=== PATIENT | male | born 1985 | race Hispanic/Latino ===

== ENCOUNTER 2016-09-10 18:07 | Emergency (ER) | payer BC ==
[2016-09-10 18:16] VITALS: BP 128/80; PULSE 74; RESP 18; TEMP 98.6; O2SAT 100
[2016-09-10] MEDS ORDERED: Lidocaine 1% Inj (20ml) ONE (18:20)
--- NOTE | 2016-09-10 18:29 | ED PDOC ---
HPI: General Adult Time Seen by Provider: 09/10/16 18:16 Chief Complaint (Nursing): Abnormal Skin Integrity Chief Complaint (Provider): Laceration on Right Elbow History Per: Patient History/Exam Limitations: no limitations Onset/Duration Of Symptoms: Hrs Current Symptoms Are (Timing): Still Present Additional Complaint(s): 18:10 Tristian Loza is a 31 year old male that presents to the ED with a laceration on his right elbow. Patient reports that he was laying on his bed at home and playing with his dog when he lost his balance and fell of the bed, at which point his right elbow hit a knob on his dresser and caused the laceration. He does not report any pain. Tetanus not UTD. Past Medical History Reviewed: Historical Data, Nursing Documentation, Vital Signs Vital Signs: Last Vital Signs Temp 98.6 F 09/10/16 18:13 Pulse 74 09/10/16 18:13 Resp 18 09/10/16 18:13 BP 128/80 09/10/16 18:13 Pulse Ox 100 09/10/16 18:32 - Family History Family History: States: Unknown Family Hx - Home Medications Home Medications: Ambulatory Orders Medication Instructions Recorded Ibuprofen [Motrin] 600 mg PO Q6 #20 tab 09/10/16 - Allergies Allergies/Adverse Reactions: Allergies Allergy/AdvReac Type Severity Reaction Status Date / Time No Known Allergies Allergy Verified 09/10/16 18:13 Review of Systems Musculoskeletal: Positive for: Other (laceration on right elbow) Physical Exam - Reviewed Nursing Documentation Reviewed: Yes Vital Signs Reviewed: Yes - Physical Exam Appears: Positive for: Non-toxic, No Acute Distress Head Exam: Positive for: ATRAUMATIC, NORMOCEPHALIC Skin: Positive for: Normal Color, Warm Extremity: Positive for: Other (6 cm vertical laceration, no active bleeding.) Neurologic/Psych: Positive for: Alert, Oriented, Other (sensation intact) - ECG O2 Sat by Pulse Oximetry: 100 (RA) Pulse Ox Interpretation: Normal Medical Decision Making Medical Decision Makin:25 Impression: Laceration on Right Elbow Plan: * Tetanus Booster * Suture Repair of Laceration Scribe Attestation: Documented by Christina Lanier, acting as a scribe for Shiloh Xie PA-C. Provider Scribe Attestation: All medical record entries made by the Scribe were at my direction and personally dictated by me. I have reviewed the chart and agree that the record accurately reflects my personal performance of the history, physical exam, medical decision making, and the department course for this patient. I have also personally directed, reviewed, and agree with the discharge instructions and disposition. Disposition - Clinical Impression Clinical Impression: Laceration - Patient ED Disposition Is Patient to be Admitted: No - Disposition Disposition: Routine/Home Disposition Time: 19:23 Condition: STABLE Additional Instructions: Suture removal in 10 - 14 days Prescriptions: Ibuprofen [Motrin] 600 mg PO Q6 #20 tab Instructions: Care For Your Stitches (ED) - POA Present On Arrival: None Laceration - Laceration Repair laceration Wound Length (In cm): 6 Description Of Wound: Linear Wound Cleansed With: Sterile Saline Anesthesia: Lidocaine 1% Wound Examination: Irrigated With Saline Wound Closure: Suture Suture Technique And Material Used: Running, Nylon (5-0) Wound Complexity: Intermediate
[2016-09-10] MEDS ORDERED: TDAP Vaccine 0.5 mL Syr IM ONE (18:34)
== END 2016-09-10 19:53 | disposition home or self-care (01) ==
LOC: H.ER 18:07
DX: S51.011A Laceration without foreign body of right elbow, initial encounter (principal); W22.8XXA Striking against or struck by other objects, initial encounter; Y92.003 Bedroom of unspecified non-institutional (private) residence as the place of occurrence of the external cause